=== PATIENT | female | born 1930 | race Caucasian/White ===

== ENCOUNTER 2016-11-04 10:54 | Inpatient (IN) | payer OTHER ==
--- NOTE | 2016-11-04 11:55 | PROVIDER DOCUMENTATION ---
HPI-General Adult <Deven Keith - Last Filed: 11/04/16 14:30> - General Source: patient, family - History of Present Illness -Gen Adult Nature of Presenting Problems: 86 y/o F presents with her granddaughters with multiple concerns. Family provides most of the history, as patient has dementia. Family states that over the last 2 months patient has been weak, tired, and falling at home. She has not been eating much and they estimate she has lost 30# over the last 2 months. She lives alone and does not use any assistance devices for walking. According to family she has also been complaining of body aches, sinus congestion and cough, however patient denies any of these symptoms and states she just "doesn' t feel good" and feels "tired". She denies any pain currently. She has seen her PCP, RAMEZ Guidry for this twice in the last week and has been treated for UTI and URI with 2 rounds of abx with no improvement. Family called PCP office today and was advised to come to the ER. Location of Pain/Injury: reports: none Quality of Pain: reports: none Associated Symptoms: reports: fatigue, malaise. denies: back/neck pain, chest pain, cough, fever/chills <Barbara Cobos - Last Filed: 11/04/16 15:50> - General Chief Complaint: General Adult Stated Complaint: GENERAL ADULT Time Seen by Provider: 11/04/16 11:11 Allergies/Adverse Reactions: Patient Allergies Allergy/AdvReac Type Severity Reaction Status Date / Time lisinopril Allergy Unknown Verified 11/04/16 13:41 mirtazapine Allergy Unknown Verified 11/04/16 13:41 Penicillins Allergy RASH Verified 11/04/16 13:41 Sulfa (Sulfonamide Allergy RASH Verified 11/04/16 13:41 Antibiotics) Home Medications: Home Medication List Medication Instructions Recorded Confirmed Last Taken Type Amiodarone [Cordarone] 200 mg PO DAILY 11/04/16 11/04/16 11/04/16 History Cholecalciferol (Vit D3) [Vitamin 2,000 mg PO DAILY 11/04/16 11/04/16 11/04/16 History D] Furosemide [Lasix] 20 mg PO DAILY 11/04/16 11/04/16 11/04/16 History Levothyroxine [Synthroid] 88 microgm PO DAILY 11/04/16 11/04/16 11/04/16 History Metoprolol [Lopressor] 100 mg PO DAILY 11/04/16 11/04/16 11/04/16 History PRAVAstatin [Pravachol] 20 mg PO DAILY 11/04/16 11/04/16 11/04/16 History Rivaroxaban [Xarelto] 20 mg PO DAILY 11/04/16 11/04/16 11/04/16 History Sertraline [Zoloft] 100 mg PO DAILY 11/04/16 11/04/16 11/04/16 History Ubidecarenone [Coq-10] 100 mg PO HS 11/04/16 11/04/16 11/04/16 History Review of Systems - Adult - REVIEW OF SYSTEMS - ADULT Constitutional: reports: no symptoms reported. denies: chills, fever Eyes: reports: no symptoms reported. denies: decreased vision, blurred vision, double vision Ears, Nose, Mouth & Throat: reports: no symptoms reported Cardiovascular: reports: no symptoms reported. denies: chest pain Respiratory: reports: no symptoms reported. denies: cough, shortness of breath , wheezing Gastrointestinal: reports: no symptoms reported. denies: abdominal pain, nausea , vomiting Genitourinary: reports: no symptoms reported. denies: dysuria, hematuria Musculoskeletal: reports: no symptoms reported. denies: muscle aches, muscle weakness Integumentary: reports: no symptoms reported. denies: itching, rash Neurological: reports: no symptoms reported. denies: dizziness/vertigo, headache/migraines, numbness, paresthesia Psychiatric: reports: no symptoms reported Endocrine: reports: no symptoms reported Hematologic/Lymphatic: reports: no symptoms reported Allergic/Immunologic: reports: no symptoms reported All Other Systems: Reviewed and Negative <Barbara Cobos - Last Filed: 11/04/16 15:50> Past History - Adult - PAST MEDICAL HISTORY-ADULT Review of Records: reports: Old Records Reviewed, Nursing Assessment Review, Medications Reviewed, Social history reviewed & non-contributory. <Barbara Cobos - Last Filed: 11/04/16 15:50> Physical Exam-General - PHYSICAL EXAM-ADULT Initial Vital Signs Reviewed: Yes - CONSTITUTIONAL General Appearance: appears well, alert, no apparent distress - EYES Eyes: PERRL/EOMI, pink conjunctivae - HEAD, EARS, NOSE, MOUTH & THROAT HENMT: normocephalic/atraumatic, moist mucous membranes, normal ENT inspection - NECK Neck: non-tender, full range of motion, supple - RESPIRATORY Respiratory: chest non-tender, lungs clear, normal breath sounds, no pleuratic chest pain, no respiratory distress, no accessory muscle use - CARDIOVASCULAR Cardiovascular: normal peripheral pulses, regular rate, rhythm, no edema, no gallop, no JVD, no murmur - GASTROINTESTINAL (ABDOMEN) Abdominal Exam: normal bowel sounds, non tender, soft. 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 negative: facial droop, focal weakness, motor weakness, sensory deficit - PSYCHIATRIC Psych/Mental Status: normal mood/affect, normal thought content, normal thought process, other (oriented to person and place. Not oriented to time.) <Barbara Cobos - Last Filed: 11/04/16 15:50> Progress - EKG 1 Time of EKG reading by physician:: 14:22 EKG Read and Signed by:: Rogerio Griffith EKG Interpretation (*Must complete 3 of following elements*): Abnormal Rate: 61 Rhythm: ATRIAL-PACED RHYTHM W/ PROLONGED AV CONDUCTION ST Wave: non-specific ST changes Comments: NONSPECIFIC STAND T WAVE ABNORMALITY <Deven Keith - Last Filed: 11/04/16 14:30> - XRAY 1 XRAY Study: Chest XRAY Interpretation: no acute process - CT/MRI 1 CT Study: Head CT Results: normal pressure hydrocephalus - CONSULTS/PCP/HOSPITALIST Notification #1 *Consult/PCP/Hospitalist*: Meli Mcduffie Time Discussed: 14:54 Consult Disposition: Admit <Barbara Cobos - Last Filed: 11/04/16 15:50> Departure <Deven Keith - Last Filed: 11/04/16 14:30> - Departure Time of Disposition Order: 14:52 Certified Medical Emergency: Emergent <Barbara Cobos - Last Filed: 11/04/16 15:50> - Departure DIAGNOSIS: Normal pressure hydrocephalus, MYNOR (acute kidney injury), Orthostatic hypotension, Frequent falls Disposition: ADMITTED INPATIENT 09 Condition: Stable Referrals: Amber Guidry [Primary Care Provider] - Attestation - Physician/ DANITZA Attestation Patient care was provided by Advanced Practice Provider:: Yes Advanced Practice Provider:: Barbara Cobos Advanced Practice Provider documentation review:: The Mid-level provider documentation, treatment plan and medical decision making was reviewed by the physician who agrees with all treatment and medical decision making by the MLP. The physician spent face to face time with patient:: Yes <Barbara Cobos - Last Filed: 11/04/16 15:50> Physician Attestation
[2016-11-04 12:31] LABS: MANUAL DIFF NEEDED? NO
[2016-11-04 12:34] LABS: BASO% 0.3 % (0.0-0.8); EOS% 4.5 % (0.0-10.0); HEMATOCRIT 46.3 % (37.0-47.0); HEMOGLOBIN 15.3 g/dL (12.0-16.0); IMM GRAN# 0.04 X1000 (0.0-0.04); IMM GRAN% 0.6 % (0.0-0.5); LYMPH# 1.88 X1000 (1.2-3.4); LYMPH% 28.1 % (20.5-51.1); MCH 30.5 PG (27-31); MCV 92.2 FL (81-99); MPV 10.3 FL (7.4-10.4); NEUT% 57.5 % (42.2-75.2); PLT 258 X1000 (130-400); RBC 5.02 XMIL (4.2-5.4)
[2016-11-04 12:48] LABS: ALBUMIN 3.9 g/dL (3.5-5.0); CALCIUM 9.5 mg/dL (8.8-10.2); POTASSIUM 4.5 mmol/L (3.5-5.1); TOTAL BILIRUBIN 0.71 mg/dL (0.20-1.00); TOTAL PROTEIN 7.4 g/dL (6.3-8.3)
--- NOTE | 2016-11-04 13:12 | Diag Imaging Result Document ---
PROCEDURE NAME: HEAD W/O CONTRAST - 11/04/[address]: COMPARISON: None. FINDINGS: There is moderate ventriculomegaly diffusely, out of proportion with the patient's cerebral atrophy. There is moderate periventricular white matter hypodensity, nonspecific. No intracranial mass or hemorrhage. The skull is intact. The sinuses, mastoids, and middle ears are clear. IMPRESSION: Ventriculomegaly which may represent normal pressure hydrocephalus. Moderate periventricular white matter disease.
--- NOTE | 2016-11-04 13:17 | Diag Imaging Result Document ---
PROCEDURE NAME: CHEST-2 VIEWS - 11/04/2016 FRONTAL AND LATERAL CHEST, TWO VIEWS: COMPARISON: No comparison films. FINDINGS: The lungs are well expanded. The patient has a left-sided pacemaker. The heart is not enlarged. The vessels are not distended. No pneumonia. No pleural effusions. IMPRESSION: No acute abnormality.
[2016-11-04 13:46] LABS: URINE SOURCE CLEAN CATCH
[2016-11-04 14:01] LABS: BILIRUBIN URINE NEGATIVE (NEGATIVE); CLARITY CLEAR (CLEAR); COLOR YELLOW; GLUCOSE URINE NEGATIVE (NEGATIVE); URINE EPITHELIAL CELLS <10 /HPF (<10); URINE RBC <10 /HPF (<10); URINE WBC <10 /HPF (<10)
[2016-11-04 14:02] LABS: BLOOD URINE NEGATIVE (NEGATIVE); PH URINE 5.5; PROTEIN URINE TRACE mg/dL (NEGATIVE); SP GRAVITY URINE 1.017; UROBILINOGEN URINE 0.2 EU/dL (0.2-1.0)
[2016-11-04 14:03] LABS: LEUKOCYTES URINE NEGATIVE (NEGATIVE); NITRITE URINE NEGATIVE (NEGATIVE); URINE CULTURE NEEDED? YES
[2016-11-04] MEDS ORDERED: NS 1,000 ML IV ONE (14:25)
--- NOTE | 2016-11-04 18:42 | HISTORY AND PHYSICAL ---
PRIMARY CARE PROVIDER: WENDY Estrada. At one point in time it was also Dr. Ayers. CHIEF COMPLAINT: Frequent falls. Losing weight. HISTORY OF PRESENT ILLNESS: Ms. Gonzalez is an 86-year-old, female, in no acute distress who has a past medical history of dementia, cardiac dysrhythmias requiring a pacemaker and amiodarone, TIAs and hypothyroidism. Apparently for the last 4-5 months per the patient's son she has had increased lethargy, dizziness, having falls, no energy and a 40 pound weight loss with no appetite. He states that for the last 1-1/2 months he has noticed that she has progressively gotten worse. She has to be reminded to eat. She is not keeping her house clean and is requiring a lot of help with daily duties such as cleaning herself. She lives alone. The family does live close and tries to assist her. She was recently treated with antibiotics for an upper respiratory infection and urinary tract infection. Lab work here does not reveal signs of a urinary tract infection although a urine culture has been sent. There are signs of dehydration with MYNOR. Creatinine is 2.4. She has loss of bladder with this. She also has elevated AST and ALT with some tenderness in the right upper and lower quadrant of her abdomen. So we will order an abdominal ultrasound. Give her IV fluid hydration and consult [employer]. Given the confusion and falling, orthostatic vital signs were performed and it did show some signs of hypotension during standing which could be adding to this but this is also likely secondary to dehydration and confusion. She was oriented to name and place. Head CT had been performed because she has had frequent falls and this head CT reported some possibility of normal pressure hydrocephalus, ventriculomegaly and we have consulted Neurology for further workup. PAST MEDICAL HISTORY: Dementia, cardiac dysrhythmias requiring pacemaker and amiodarone, TIA, hypothyroidism. PAST SURGICAL HISTORY: Permanent pacemaker, cholecystectomy, hysterectomy, cataracts, carpal tunnel, back and tonsillectomy. SOCIAL HISTORY: Denies tobacco, alcohol, or illicit drug use. Lives at home alone. FAMILY HISTORY: Sister is from brain cancer. Another sister has cancer. REVIEW OF SYSTEMS: A 14 point review of systems were complete and all were negative except for those mentioned in the above HPI. ALLERGIES: Lisinopril, mirtazapine, penicillin and sulfa. HOME MEDICATIONS: Amiodarone 200 p.o. daily, Lasix 20 mg p.o. daily, metoprolol 100 mg p.o. daily, pravastatin 20 mg p.o. daily, Xarelto 20 mg p.o. daily, Synthroid 88 mcg p.o. daily, CoQ10 100 mg p.o. nightly, vitamin D 2000 mg p.o. daily, Zoloft 100 mg p.o. daily. LABORATORY DATA: White blood cells 6000, hemoglobin 15, hematocrit 46, platelet count 258,000. Sodium 136, potassium 4.5, BUN 38, creatinine is 2.4, GFR is 19, glucose 119, calcium 9.5, total bilirubin 0.71. AST is 179, ALT is 229, troponin less than 0.01, albumin 3.9. Urinalysis: Negative white blood cells, negative for bacteria. IMAGING: Head CT: Ventriculomegaly which may represent normal pressure hydrocephalus, moderate periventricular white matter disease. Chest x-ray: No acute findings. PHYSICAL EXAMINATION: VITAL SIGNS: Temp temperature 98.2 degrees, heart rate 64, respiratory rate 18, blood pressure 144/64, O2 saturation 100% on room air. ORTHOSTATIC VITALS: Heart rate remained in the 60s but blood pressure went from supine 122/57, sitting 109/88, standing 88/48. GENERAL: Ms. Gonzalez is an 86-year-old, female. She is in no acute distress. She is able to answer some questions appropriately but not all. There is some confusion involved. HEENT: Atraumatic, normocephalic. Pupils equal, round, reactive to light. Mucous membranes are dry. NECK: No JVD or carotid bruits noted. CARDIOVASCULAR: S1, S2. Regular rate and rhythm. No rubs, gallops, or murmurs. PULMONARY: Clear to auscultation. Bilateral breath sounds. No accessory muscle use or work of breathing noted. GASTROINTESTINAL: Soft, nondistended, positive bowel sounds x4 although she does have some tenderness in the right upper and lower quadrant. EXTREMITIES: Trace lower extremity edema. She has +2 dorsalis and radial pulses. NEUROLOGIC: She is oriented to name and place only. She did follow commands and moved all extremities equally. Strength was equal about of 4/5 in all extremities. ASSESSMENT AND PLAN: 1. Possible normal pressure hydrocephalus was found on head CT. Neurology has been consulted. 2. Dementia. Possible progressive. Given that she has not been eating and not as vigilant in keeping herself clean or the house clean, very poor appetite but no nausea or vomiting, Fuel Agent has been consulted for possible placement once discharged. Again will follow up with recommendations from Neurology. 3. Acute kidney injury likely secondary to dehydration and poor p.o. intake. We will do IV fluid hydration. Send off urine studies. She has been receiving Lasix at home. This could also be prerenal secondary to hypotensive episodes on standing. She also has been receiving 100 mg of metoprolol which could be adding to the hypotension. We will do orthostatic vitals every 12 hours and continue with IV fluid hydration. 4. Elevated liver enzymes. Amiodarone will be held and so will her statin. The statin could also add to decreased muscle strength. 5. Hypertension. Currently not hypertensive. 6. Hypothyroidism. Continue Synthroid. We will check TSH in morning. 7. Deep venous thrombosis prophylaxis. SCDs. 8. GI prophylaxis. Proton pump inhibitor. Dictated by WENDY Patino for Trey Salazar MD
[2016-11-04] MEDS ORDERED: TYLENOL PO PRN (19:02)
[2016-11-04] MEDS ORDERED: ZOFRAN IV PRN (19:02)
[2016-11-04] MEDS: NS 1,000 ML IV SCH (20:57)
[2016-11-04] MEDS: COENZYME Q10 PO SCH (20:57)
[2016-11-05] MEDS: NS 1,000 ML IV SCH ×2 (04:11→18:24)
[2016-11-05] MEDS: PRILOSEC PO SCH (06:01)
[2016-11-05 06:10] LABS: MANUAL DIFF NEEDED? NO
[2016-11-05 06:30] LABS: INR 1.14; PROTIME 12.1 Seconds (9.2-11.7); PTT 26.3 Seconds (22.0-36.0)
[2016-11-05 06:33] LABS: BASO% 0.2 % (0.0-0.8); EOS# 0.31 X1000 (0.0-0.7); EOS% 7.2 % (0.0-10.0); HEMATOCRIT 40.9 % (37.0-47.0); HEMOGLOBIN 13.6 g/dL (12.0-16.0); IMM GRAN# 0.02 X1000 (0.0-0.04); IMM GRAN% 0.5 % (0.0-0.5); LYMPH# 1.42 X1000 (1.2-3.4); LYMPH% 32.9 % (20.5-51.1); MCH 30.6 PG (27-31); MCHC 33.3 g/dL (33-37); MCV 92.1 FL (81-99); MONO# 0.48 X1000 (0.11-0.59); MONO% 11.1 % (1.7-9.3); MPV 9.9 FL (7.4-10.4); NEUT% 48.1 % (42.2-75.2); PLT 162 X1000 (130-400); RBC 4.44 XMIL (4.2-5.4)
[2016-11-05 06:35] LABS: ALBUMIN 3.2 g/dL (3.5-5.0); CALCIUM 8.4 mg/dL (8.8-10.2); MAGNESIUM 1.8 mg/dL (1.5-2.7); POTASSIUM 4.9 mmol/L (3.5-5.1); TOTAL BILIRUBIN 0.71 mg/dL (0.20-1.00); TOTAL PROTEIN 6.1 g/dL (6.3-8.3)
[2016-11-05 06:56] LABS: HEMOGLOBIN A1C 5.2 % (4.8-6.0)
[2016-11-05] MEDS: VITAMIN D PO SCH (09:45)
[2016-11-05] MEDS: XARELTO PO SCH (09:46)
[2016-11-05] MEDS: ZOLOFT PO SCH (09:46)
[2016-11-05] MEDS: SYNTHROID PO SCH (09:46)
--- NOTE | 2016-11-05 11:23 | Diag Imaging Result Document ---
PROCEDURE NAME: US ABDOMEN-COMPLETE - 11/05/2016 ULTRASOUND ABDOMEN COMPLETE: COMPARISON: None. FINDINGS: There are a couple of right renal cysts measuring up to 3 cm. No hydronephrosis. The left kidney is normal. Gallbladder is surgically absent. The liver, pancreas, and spleen are normal. Spleen size is 8.9 x 8.6 x 4.3 cm. The common bile duct measures 5 mm. Aorta, IVC, and main portal vein are patent. IMPRESSION: Right renal cysts. No acute disease.
--- NOTE | 2016-11-05 15:10 | CONSULTATION ---
DATE OF CONSULTATION: 11/05/2016 NEUROLOGY CONSULT NOTE: Ms. Gonzalez is 86 years old and she has had some decline neurologically. History is taken from attentive family at the bedside including son and daughter. I have also reviewed the history recorded in the hospital chart. Family reports she had some forgetfulness more than a year ago. She had diagnosis of dementia and a trial with donepezil and memantine started together approximately a year ago. She stopped those medicines after about a week because of nightmares. Later, she had a short trial with rivastigmine patch and stopped that after a week or so because of nightmares. She has not had a trial with memantine alone. Her memory has been gradually getting worse. She has had unsteady gait in the last several months. She has had a few falls in the last month. Daughter witnessed one fall when she seemed to simply trip over her feet. Falls are not associated with altered consciousness, altered awareness, focal neurologic deficit. She has a little bit of urge incontinence but not major incontinence. There is history of head injury when she fell down some steps a few years ago. She also had head injury in one of her recent falls within the last month or so. Head injuries have not definitely been associated with loss of consciousness or altered awareness. Family reports history of "stroke" diagnosed 30 years or so ago when she had transient speech difficulty resolving in small number of days. Otherwise, she has not had diagnosed stroke, seizure, other neurologic event. She does not use ethanol. She has not had any recent medication change. According to family, she has lost appetite. She has had very little p.o. intake. She has lost about 20 pounds in the last month. She presents today with labs showing elevated liver enzymes, BUN initially 38 and then 31, creatinine initially 2.4 [address] then [address]. Noncontrast CT of the head showed large ventricles and diffuse atrophy. Past history is remarkable for cardiac pacemaker placement, hypothyroidism, hypertension, dyslipidemia. Review of vital signs shows she has been afebrile this admission. Heart rate has ranged from 60s to 80. Systolic blood pressures have ranged from 140s initially to 190s after hydration. On exam, Ms. Gonzalez is awake, alert, attentive, cheerful, appropriate. She was not able to tell me the name of the hospital, the day of the week, the name of the month, the name of the President. Speech is not dysarthric. Language function is intact on bedside testing. Remote memory is fair. Head and neck are unremarkable. There is no meningismus. She has full visual pulido tested grossly by confrontational finger counting. Extraocular movements are full. Facial motility is a little bit diminished bilaterally, but symmetric. Gag is intact. Tongue is midline. She can hear. Shoulder shrug is good bilaterally. She has good power in the arms and legs. She did well on [id number] testing. While seated at the bedside, she did well on heel- to-marsh testing. She has good peripheral sensation to gross pinprick and light touch testing. Gait is apractic. Reflexes are 1+ at the knees and absent at the ankles. Plantar response is silent bilaterally. IMPRESSION: 1. Baseline cognitive impairment, probably major cognitive impairment/dementia. She did not tolerate cholinesterase inhibitors. She has not had memantine alone. We might consider trial with memantine electively, not urgent. We might also very carefully consider trying cholinesterase inhibitor with lower starting dose. 2. Apractic gait. 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 This has been worse in recent months. Family gives clear history that cognitive impairment significantly preceded gait difficulty. 3. CT findings as noted. Unfortunately, MRI is not an option because of her pacemaker placement. She does not have significant urinary incontinence. Cognitive impairment preceded gait difficulty. These features make "normal pressure hydrocephalus" less likely. We discussed this diagnosis at some length. I do not think we need urgent workup. If we can get her current liver and renal problems stabilized, get her hydrated, get some physical therapy and see how she does, we might then consider large volume cerebral spinal fluid drainage with LP or a continued CSF drainage procedure. These are not urgent. Thanks for asking me to see Ms. Gonzalez. [facility]
--- NOTE | 2016-11-05 17:29 | PROGRESS NOTE ---
DATE: 11/05/2016 SUBJECTIVE: The patient is doing fine, definitely more alert and awake. Denies any headache or nausea, vomiting. OBJECTIVE: Vital Signs: Temperature 98.0 degrees, heart rate 58, respiratory rate 14, blood pressure 127/50, O2 saturation 96% on room air. General Examination: This is a 86-year-old female lying in bed, in no acute distress. HEENT: Head is normocephalic, atraumatic. Anicteric sclerae and pale conjunctivae. Mucous membranes moist. Neck: Supple. No JVD noted. No carotid bruits. No lymphadenopathy. No thyromegaly. Cardiovascular: S1, S2 heard. No murmurs, gallops, or rubs. Regular rate and rhythm. Respiratory: Clear bilaterally to auscultation. No work of breathing or using accessory muscles. Abdomen: Soft, nontender to palpation. Bowel sounds present. No organomegaly. Extremities: No clubbing, cyanosis, or edema. Peripheral pulses present in both legs. Neurological: Patient is alert and oriented x3. Cranial nerves 2-12 grossly normal. LABORATORY DATA: CBC is unremarkable, and BMP shows creatinine 1.6, and BUN 31, with AST 138, ALT 165. ASSESSMENT: 1. Hydrocephalus. 2. Dementia. 3. Acute kidney injury. 4. Transaminitis. 5. Hypertension. 6. Hypothyroidism. PLAN: Patient was admitted to the hospital for altered mental status, dementia, and urinary incontinence. CT of the head shows some hydrocephalus so at this time, we have consulted Dr. Gaitan, who thinks that this probably is not the classic normal pressure hydrocephalus considering that the dementia has appeared first before gait disturbances. At this time, we are going to continue with conservative treatment. For acute kidney injury, the renal function is getting better with IV fluids. We will continue definitely with the same management and check BMP tomorrow. For transaminitis we are going to consult GI. We have already ordered a hepatitis profile. For high blood pressure we are going to continue with home medications. For hypothyroidism we will continue with oral Synthroid.
[2016-11-05] MEDS ORDERED: HALDOL IM ONE (20:15)
--- NOTE | 2016-11-05 20:40 | CONSULTATION ---
DATE OF CONSULTATION: 11/05/2016 REFERRING PHYSICIAN: Trey Salazar MD INDICATIONS FOR CONSULTATION: 1. Elevated liver function tests. 2. Ongoing weight loss. HISTORY OF PRESENT ILLNESS: The patient is a very pleasant 86-year-old white female who was brought to the emergency room by family for the evaluation of lethargy, dizziness, frequent falls at home, loss of energy, and a 40 pound weight loss associated with anorexia. The family states that for the last 1-1/2 months, she has had a progressive decline in her overall status. She has to be reminded to eat and frequently only eats a small amount and claims that she is full. She has a history of constipation alternating with diarrhea. Her daughter states that she had a colonoscopy greater than 20 years ago that was reportedly normal except for diverticulitis. She states that the diverticulitis found on colonoscopy was treated with antibiotics, and her mother has had no further challenges from the diverticulitis. Her last colonoscopy was in her 70s. She denies a family history of colon cancer. She does note that the patient's sister from Clostridium difficile colitis. She has 1 sister who from lung cancer with brain metastasis, and their father from a myocardial infarction. She has one sister who is alive who has similar multiple GI concerns. On serum chemistry after admission, she was found to have elevated liver function tests. Her head CT is remarkable for ventriculomegaly, which may represent normal pressure hydrocephalus with moderate periventricular white matter disease. We are asked to participate in her care. PAST MEDICAL HISTORY: 1. Cardiac arrhythmias requiring pacemaker and amiodarone. 2. TIAs. 3. Dementia. 4. Hypothyroidism. 5. Diverticulitis. PAST SURGICAL HISTORY: 1. Cholecystectomy. 2. Tonsillectomy. 3. Back surgery. 4. Carpal tunnel repair. 5. Permanent pacemaker placement. 6. Cataracts. SOCIAL HISTORY: Negative for alcohol, tobacco, or recreational drug use. The patient lives alone at this time. REVIEW OF SYSTEMS: Remarkable in that the patient feels slightly better today after she has received IV fluids. She continues to have weakness and mild nausea. She reports a loss of appetite. She is in no acute distress, denying severe abdominal pain, fever, chills, headache, or other symptoms. ALLERGIES: Her medication allergies are: 1. Lisinopril. 2. Mirtazapine. 3. Penicillin. 4. Sulfa. HOME MEDICATIONS: 1. Amiodarone. 2. Lasix. 3. Metoprolol. 4. Pravastatin. 5. Xarelto. 6. Synthroid. 7. CoQ10. 8. Vitamin D. 9. Zoloft. PHYSICAL EXAMINATION: Vital Signs: On exam, her blood pressure is 127/58, pulse is 60, respirations 14, temperature of 98.1 degrees. General: In general, she is in no acute distress. HEENT: Her sclerae are anicteric. Her conjunctivae are slightly pale. Her oropharyngeal and mucosal membranes are normal. Pulmonary: On pulmonary exam, her lungs are clear to auscultation with normal expiratory effort. Cardiovascular: Exam reveals a regular rate and rhythm with no murmurs, gallops, or rubs. Abdomen: Exam reveals normoactive bowel sounds. The abdomen is soft, nontender, with no rebound or guarding. Extremities: Bilaterally are negative for cyanosis, clubbing, or edema. OBJECTIVE DATA: Remarkable for hemoglobin of 13.6 with hematocrit of 40.9, and a white count of 4.31; she has 162,000 platelets. Her PT is 12.1 with an INR of 1.14 and a PTT of 26.3. Sodium is 139, potassium 4.9, chloride 103, CO2 of 26, BUN 31, creatinine 1.6, and glucose of 87. Calcium is 8.4, magnesium 1.8, total bilirubin 0.7, AST 138, ALT is 165, alkaline phosphatase is 69, total protein 6.1, and albumin 3.2. IMPRESSION: 1. Elevated liver function tests. 2. Ongoing weight loss. 3. Change in bowel habits. 4. New normal pressure hydrocephalus. RECOMMENDATIONS: 1. The cause of her elevated liver function tests is unclear. The differential includes viral hepatitis, autoimmune liver disease, and her medications. Her liver function tests are improving over the last 24 hours without any intervention. Therefore, I recommend watchful waiting. 2. I would check markers for autoimmune liver disease such as an DICKSON and antismooth muscle antibody. 3. I would follow her CRP as a marker of inflammation, coagulation studies, and her CBC. 4. Her abdominal ultrasound was reviewed and is unremarkable. At this time, I would continue conservative care. 5. I agree with Protonix for GI prophylaxis. 6. I would continue regular diet as you are doing. 7. Additional recommendations to follow based on her clinical course.
[2016-11-05] MEDS: COENZYME Q10 PO SCH (20:48)
[2016-11-05] MEDS ORDERED: HALDOL IM PRN (22:30)
[2016-11-06] MEDS: NS 1,000 ML IV SCH ×2 (04:31→14:51)
[2016-11-06 06:40] LABS: MANUAL DIFF NEEDED? NO
[2016-11-06] MEDS: PRILOSEC PO SCH (06:46)
[2016-11-06 06:53] LABS: BASO% 0.3 % (0.0-0.8); EOS# 0.25 X1000 (0.0-0.7); EOS% 7.4 % (0.0-10.0); HEMATOCRIT 41.6 % (37.0-47.0); HEMOGLOBIN 13.8 g/dL (12.0-16.0); LYMPH# 0.87 X1000 (1.2-3.4); LYMPH% 25.8 % (20.5-51.1); MCH 30.5 PG (27-31); MCHC 33.2 g/dL (33-37); MONO# 0.32 X1000 (0.11-0.59); MONO% 9.5 % (1.7-9.3); PLT 168 X1000 (130-400); RBC 4.52 XMIL (4.2-5.4)
[2016-11-06 06:59] LABS: INR 1.23; PROTIME 13.1 Seconds (9.2-11.7)
[2016-11-06 07:26] LABS: ALBUMIN 2.7 g/dL (3.5-5.0); CALCIUM 8.4 mg/dL (8.8-10.2); PREALBUMIN 26.9 mg/dL (20-40); TOTAL BILIRUBIN 0.64 mg/dL (0.20-1.00); TOTAL PROTEIN 5.8 g/dL (6.3-8.3)
[2016-11-06] MEDS: ZOLOFT PO SCH (10:00)
[2016-11-06] MEDS: XARELTO PO SCH (10:00)
[2016-11-06] MEDS: SYNTHROID PO SCH (10:00)
[2016-11-06] MEDS: VITAMIN D PO SCH (10:00)
--- NOTE | 2016-11-06 13:43 | PROGRESS NOTE ---
DATE: 11/06/2016 SUBJECTIVE: Patient is feeling fine. Denies any headache, any fever, chills, nausea or vomiting. OBJECTIVE: Vital Signs: Temperature 98.6 degrees, heart rate 62, respiratory rate 19, blood pressure 183/64, and O2 saturation 97% on room air. General examination: This is a 89-year-old, female, lying in bed in no acute distress. HEENT: Head is normocephalic, atraumatic. Anicteric sclerae and pale conjunctivae. Mucous membranes moist. Neck: Supple. No JVD noted. No carotid bruits. No lymphadenopathy. No thyromegaly. Cardiovascular exam: S1, S2 heard. No murmurs, gallops, or rubs. Regular rate and rhythm. Respiratory exam: Clear bilaterally to auscultation. No work of breathing or using accessory muscles. Abdomen: Soft, nontender to palpation. Bowel sounds present. No organomegaly. Extremities: No clubbing, cyanosis, or edema. Peripheral pulses present in both legs. Neurological exam: Patient alert and oriented x3. Able to move 4 extremities. Cranial nerves 2-12 grossly normal. LABORATORY DATA: White cell count 3.37, hemoglobin 13.8, hematocrit 41.6, platelets 168. BMP is unremarkable. ASSESSMENT: 1. Hydrocephalus noted on computed tomography. 2. Dementia. 3. Acute kidney injury. 4. Transaminitis. 5. Hypertension. 6. Hypothyroidism. PLAN: The patient was admitted to the hospital for altered mental status, dementia, and labs shows acute kidney injury. The altered mental status completely resolved and patient is back to her baseline. For acute kidney injury, patient has been given IV fluids, and creatinine is almost back to normal at 1.1 today. We will continue with the same management. For hydrocephalus, neurology has evaluated this patient and he mentioned that he may plan to do any procedures after this patient had transaminitis and acute kidney injury resolved. Regarding transaminitis, this patient has been evaluated by Dr. Pryor, and she recommends watching this patient only because these enzymes are coming back to normal without any intervention. We will follow her recommendations. Further recommendations to follow according to the clinical situation of the patient.
[2016-11-06] MEDS ORDERED: MIRALAX PO ONE (14:23)
[2016-11-06] MEDS: COENZYME Q10 PO SCH (20:11)
[2016-11-06] MEDS ORDERED: DULCOLAX PR ONE (21:40)
--- NOTE | 2016-11-06 22:15 | PROGRESS NOTE ---
DATE: 11/06/2016 SUBJECTIVE: The patient was evaluated this afternoon on rounds. She states that she feels pretty good. She complains of constipation. She had some mild diffuse abdominal pain when she was straining to defecate. She is specifically requesting a Dulcolax suppository. She denies other symptoms and has tolerated regular diet without difficulty. OBJECTIVE: On exam she is in no acute distress. Her blood pressure is 183/64, pulse is 62, respiration 19, temperature of 98.6 degrees. Her abdominal exam reveals normoactive bowel sounds. The abdomen is soft with mild diffuse tenderness but no rebound or guarding. OBJECTIVE DATA: Include a hemoglobin of 13.8 with hematocrit of 41.6 and white count of 3.37. She has 168,000 platelets. Her PT is 13.1 with an INR 1.23. Sodium is 143, potassium 4.0, chloride 109, CO2 of 25, BUN 17, creatinine 1.1 with a glucose of 90. Calcium is 8.4, total bilirubin 0.64, AST 108, ALT 134, alkaline phosphatase 62, total protein 5.8 and albumin 2.7. RECOMMENDATION: 1. Her liver function tests continue to improve. Therefore, I would continue careful monitoring with daily labs. 2. She reports constipation. Therefore, I will prescribed a Dulcolax suppository now and as needed for constipation. 3. The patient has prescribed a regular diet but states that she is mostly drinking Ensure, I have encouraged her to advance her diet as tolerated. 4. We await the results of her outstanding labs. 5. Additional recommendations to follow based on her clinical course.
[2016-11-07] MEDS: NS 1,000 ML IV SCH ×4 (02:11→23:33)
[2016-11-07] MEDS: PRILOSEC PO SCH (06:03)
[2016-11-07] MEDS: ANUSOL-HC CREAM PR SCH ×3 (06:04→20:26)
[2016-11-07 06:34] LABS: MANUAL DIFF NEEDED? NO
[2016-11-07 06:38] LABS: BASO% 0.2 % (0.0-0.8); EOS# 0.18 X1000 (0.0-0.7); EOS% 3.5 % (0.0-10.0); HEMATOCRIT 37.7 % (37.0-47.0); HEMOGLOBIN 12.4 g/dL (12.0-16.0); IMM GRAN# 0.02 X1000 (0.0-0.04); IMM GRAN% 0.4 % (0.0-0.5); LYMPH% 23.2 % (20.5-51.1); MCH 30.2 PG (27-31); MCHC 32.9 g/dL (33-37); MONO% 7.7 % (1.7-9.3); MPV 10.1 FL (7.4-10.4); PLT 158 X1000 (130-400)
[2016-11-07 06:55] LABS: ALBUMIN 2.9 g/dL (3.5-5.0); CALCIUM 8.5 mg/dL (8.8-10.2); POTASSIUM 4.1 mmol/L (3.5-5.1); TOTAL BILIRUBIN 0.63 mg/dL (0.20-1.00); TOTAL PROTEIN 5.4 g/dL (6.3-8.3)
[2016-11-07] MEDS: VITAMIN D PO SCH (10:07)
[2016-11-07] MEDS: ZOLOFT PO SCH (10:08)
[2016-11-07] MEDS: SYNTHROID PO SCH (10:08)
[2016-11-07] MEDS: XARELTO PO SCH (10:08)
[2016-11-07] MEDS ORDERED: AMITIZA PO ONE (11:13)
--- NOTE | 2016-11-07 12:55 | PROGRESS NOTE ---
DATE: 11/07/2016 SUBJECTIVE: Patient is feeling fine. Denies any complaint. Patient is able to walk around. No nausea, vomiting, fever, chills. OBJECTIVE: Vital Signs: Temperature 98.5 degrees, heart rate 64, respiratory rate 18, blood pressure 151/59, O2 saturation 100% on room air. General Examination: This is an 86-year-old female lying in bed, in no acute distress. HEENT: Head is normocephalic, atraumatic. Anicteric sclerae. Pale conjunctivae. Mucous membranes moist. Neck: Supple. No JVD noted. No carotid bruits. No lymphadenopathy. No thyromegaly. Cardiovascular: S1, S2 heard. No murmurs, gallops, or rubs. Regular rate and rhythm. Respiratory: Clear bilaterally to auscultation. No work of breathing or using accessory muscles. Abdomen: Soft. Nontender to palpation. Bowel sounds present. No organomegaly. Extremities: No clubbing, cyanosis, or edema. Peripheral pulses present in both legs. Neurological: Patient is alert and oriented x3. Able to move 4 extremities. Cranial nerves 2 through 12 grossly normal. LABORATORY DATA: CBC and BMP are completely. ASSESSMENT: 1. Hydrocephalus noted on CT of head. 2. Dementia. 3. Acute kidney injury. 4. Transaminitis. 5. Hypertension. 6. Hypothyroidism. PLAN: Patient admitted to the hospital for altered mental status, dementia. Also CT of the head shows ventriculomegaly. Dr. Gaitan has been consulted. He does not think that this is a normal pressure hydrocephalus. In any case, he preferred to wait for MYNOR and also for transaminitis to resolve in order to make further plans. At this time acute kidney injury is completely resolved and AST and ALT are getting much better without any intervention. Tomorrow we are going to check with him to see if he is planning to do any procedure like lumbar puncture or just checking on her in the office. The patient clinically is doing fine. Altered mental status has completely resolved. She is able to walk around and is eating okay as well. Also from a GI standpoint, Dr. Pryor is following this patient and reports that she is planning to just watch her considering that the transaminases are getting better. For dementia, she is definitely better too. As we mentioned before. We will check with neurology for further plans.
--- NOTE | 2016-11-07 18:06 | CONSULTATION ---
DATE OF CONSULTATION: 11/07/2016 CHIEF COMPLAINT: Swollen hemorrhoids. HISTORY: This is an 86-year-old lady admitted on the with weight loss. She has a history of dementia, cardiac dysrhythmia, TIA, hypothyroidism. She apparently has been falling and so she is admitted for further evaluation. PAST SURGICAL HISTORY: Cholecystectomy, hysterectomy, cataracts, carpal tunnel, back surgery, tonsillectomy, pacemaker surgery. MEDICATIONS: Listed. SOCIAL HISTORY: She does not smoke or drink alcohol. She lives at home alone. FAMILY HISTORY: Pertinent for cancer. REVIEW OF SYSTEMS: Pertinent for constipation and she does have known hemorrhoids. ALLERGIES: Lisinopril, mirtazapine, penicillin, Sulfa. PHYSICAL EXAMINATION: Vital Signs: She is afebrile. Heart rate 59, respiratory rate 18, blood pressure 127/50. Lungs: Bilateral breath sounds. Heart: Regular rate and rhythm. Abdomen: Soft. RECTAL: Her anus shows swollen external hemorrhoids. Anal caliber is normal. No hard masses palpated. No blood is noted on the gloved finger. Extremities: She has trace peripheral edema. Neurologic: She is awake and alert. ASSESSMENT: Swollen external hemorrhoids. I would recommend conservative therapy using Anusol with hydrocortisone cream and I think with time, the swelling will go down. Her anal caliber is fine. This does not represent a malignancy. Thanks for the opportunity to see her.
[2016-11-07] MEDS: COENZYME Q10 PO SCH (20:26)
[2016-11-07] MEDS ORDERED: ANUSOL-HC CREAM PR SCH (21:00)
[2016-11-07] MEDS ORDERED: DULCOLAX PR PRN (21:40)
[2016-11-08] MEDS: PRILOSEC PO SCH (06:41)
[2016-11-08 07:11] LABS: MANUAL DIFF NEEDED? NO
[2016-11-08 07:18] LABS: BASO% 0.5 % (0.0-0.8); EOS# 0.23 X1000 (0.0-0.7); EOS% 5.3 % (0.0-10.0); HEMATOCRIT 36.6 % (37.0-47.0); IMM GRAN# 0.03 X1000 (0.0-0.04); IMM GRAN% 0.7 % (0.0-0.5); LYMPH# 1.26 X1000 (1.2-3.4); MCH 30.2 PG (27-31); MCHC 32.8 g/dL (33-37); MCV 92.2 FL (81-99); MONO# 0.47 X1000 (0.11-0.59); MONO% 10.8 % (1.7-9.3); MPV 10.2 FL (7.4-10.4); NEUT% 53.7 % (42.2-75.2); PLT 160 X1000 (130-400); RBC 3.97 XMIL (4.2-5.4)
[2016-11-08 07:42] LABS: AGAP 11; ALBUMIN 2.6 g/dL (3.5-5.0); ALKALINE PHOSPHATASE 55 U/L (32-104); BUN 10 mg/dL (8-22); CALCIUM 7.9 mg/dL (8.8-10.2); CHLORIDE 107 mmol/L (98-107); COSMO 283; GOT 50 U/L (10-30); GPT 74 U/L (10-36); POTASSIUM 3.7 mmol/L (3.5-5.1); SODIUM 143 mmol/L (136-145); TCO2 25 mmol/L (25-35); TOTAL BILIRUBIN 0.63 mg/dL (0.20-1.00); TOTAL PROTEIN 5.3 g/dL (6.3-8.3)
[2016-11-08] MEDS: VITAMIN D PO SCH (09:35)
[2016-11-08] MEDS: ANUSOL-HC CREAM PR SCH (09:35)
[2016-11-08] MEDS: SYNTHROID PO SCH (09:35)
[2016-11-08] MEDS: XARELTO PO SCH (09:35)
[2016-11-08] MEDS: ZOLOFT PO SCH (09:35)
[2016-11-08 10:40] VITALS: BP 124/46
[2016-11-08] MEDS: NS 1,000 ML IV SCH (11:01)
[2016-11-08 15:25] LABS: HEPATITIS PROFILE ACUTE SEE COMMENTS (())
--- NOTE | 2016-11-08 17:15 | PROGRESS NOTE ---
DATE: 11/08/2016 Ms. Gonzalez is awake, alert, attentive and appropriate. Speech is not dysarthric. I did not examine her gait. She has not had any more episodes. As discussed with patient and family at the bedside and with Dr. Mcduffie, my suggestion is to optimize other management before considering specific workup for CSF pressure. I would continue correcting her liver and kidney function, continue medicines, consider donepezil trial, consider physical therapy/rehab. We discussed potential workup for CSF pressure. I will be glad to see her as an outpatient whenever needed. Thanks for asking me to see Ms. Gonzalez.
--- NOTE | 2016-11-09 15:43 | DISCHARGE SUMMARY ---
ADMISSION DATE: 11/04/2016 DISCHARGE DATE: 11/08/2016 CONSULTATIONS: 1. Dr. Pedro Pablo Gaitan with Neurology. 2. Dr. Shanda Pryor with GI. 3. Dr. Cb Navarro with General Surgery. PERTINENT PROCEDURES: Head CT showed ventriculomegaly which may represent normal pressure hydrocephalus, moderate periventricular white matter disease. Abdomen ultrasound showed a right renal cyst, no acute disease. DISCHARGE DIAGNOSES: 1. External hemorrhoids. Continue with Anusol externally. 2. Hydrocephalus noted on CT of the head, showed ventriculomegaly. However per Dr. Gaitan he does not think that this is a normal pressure hydrocephalus and preferred to await acute kidney injury and transaminitis to resolve to make any further plans. Stable. 3. Dementia. Stable. 4. Acute kidney injury. Resolved. 5. Transaminitis. Improving. 6. Hypertension. Stable. 7. Hypothyroidism. Continue on Synthroid. 8. Possibly progressive dementia. However patient appears back at baseline. HOSPITAL COURSE: Briefly, Ms. Gonzalez is an 86-year-old, female, who has a past medical history of dementia, cardiac dysrhythmias, requiring a pacemaker and amiodarone, TIAs and hypothyroidism. Apparently over the last 4-5 months per the son the patient has had an increase in lethargy, dizziness, having falls, no energy, 40 pound weight loss with no appetite. He states that over the past month and a half he noticed that she is progressively getting worse. She has to be reminded to eat. She is not keeping her house clean, is requiring a lot of help with daily duties such as cleaning herself. The patient does live alone. Family does live close and they do try to assist her. She was recently treated with antibiotics for her upper respiratory infection and UTI. Lab work did not reveal any signs of UTI but there were signs of dehydration with acute kidney injury. Her creatinine was 2.4. She did have loss of bladder. She also had an elevated AST and ALT with some tenderness in the right upper and lower quadrant of her abdomen. Abdominal ultrasound was ordered and only showed a renal cyst. Did suspect that the liver, pancreas and spleen were normal. She did have a head CT that showed some possibility of normal pressure hydrocephalus, ventriculomegaly. Neurology was consulted for this. She was also started on IV fluids due to her dehydration and acute kidney injury. Her amiodarone was held as well as her statin due to her elevated liver enzyme. Dr. Gaitan did not feel that this was a normal hydrocephalus. And due to her cognitive impairment, preceded gait difficulty, these features make "normal pressure hydrocephalus" less likely. He did not feel there was a need for an urgent workup and unfortunately due to her pacemaker placement MRI is not an option. And after she has had physical therapy along with hydration and issue of her acute candidate kidney injuries along with liver function studies he might consider a large volume cerebral spinal fluid drainage with LP, but it was not urgent. Dr. Shanda Pryor was consulted secondary to elevated liver functions. Her liver functions did continue to improve. Dr. Cb Navarro was also consulted for external hemorrhoids. He found that they were swollen. He recommended conservative therapy using Anusol with hydrocortisone cream. Her anal caliber was fine. He did not feel that this was any type of malignancy. The patient's acute kidney injury has completely resolved. Her AST and ALT have has improved without intervention. Her altered mental status has completely resolved. She has been walking around and eating okay as well. The patient is being discharged today. The patient is being discharged home with home health. DISCHARGE MEDICATION: 1. Xarelto 20 mg p.o. daily. 2. Synthroid 88 mcg p.o. daily. 3. CoQ10 100 mg p.o. at bedtime. 4. Vitamin D 2000 units p.o. daily. 5. Zoloft 100 mg p.o. daily. 6. Anusol 2.5% p.r. b.i.d. apply externally to hemorrhoids as needed. FOLLOWUP: Patient is being discharged home with home health. She is to follow up with her nurse practitioner, Amber Guidry. She will need to follow up this week because of her elevated liver enzymes as well as an acute kidney injury and medication changes. Patient has been taken off her amiodarone, her statin, her Lasix, and her Lopressor secondary to the elevated liver enzymes and acute kidney injury secondary to dehydration. The patient can return to the ED for any worsening of symptoms. DISCHARGE TIME: Greater than 30 minutes. Dictated by WENDY Conti for Trey Salazar MD
--- NOTE | 2016-11-17 08:29 | DISCHARGE SUMMARY ---
ADMISSION DATE: 11/04/2016 DISCHARGE DATE: 11/08/2016 DISCHARGE SUMMARY ADDENDUM: ANSWER: Metabolic encephalopathy secondary to MYNOR/dehydration.
== END 2016-11-08 16:53 | disposition home health service (06) | DRG 682 ==
LOC: ED 10:54 → 3N 18:30
PROVIDERS: ATTEND Internal Medicine
DX: N17.9 Acute kidney failure, unspecified (principal); G93.41 Metabolic encephalopathy; G91.9 Hydrocephalus, unspecified; F03.90 Unspecified dementia, unspecified severity, without behavioral disturbance, psychotic disturbance, mood disturbance, and anxiety; E86.0 Dehydration; I10 Essential (primary) hypertension; E03.9 Hypothyroidism, unspecified; R63.4 Abnormal weight loss; R74.0 Nonspecific elevation of levels of transaminase and lactic acid dehydrogenase [LDH]; N39.41 Urge incontinence; E78.5 Hyperlipidemia, unspecified; K59.00 Constipation, unspecified; K64.4 Residual hemorrhoidal skin tags; Z68.31 Body mass index [BMI] 31.0-31.9, adult; Z95.0 Presence of cardiac pacemaker; Z79.899 Other long term (current) drug therapy; Z86.73 Personal history of transient ischemic attack (TIA), and cerebral infarction without residual deficits; Z91.81 History of falling; Z80.9 Family history of malignant neoplasm, unspecified; Z79.01 Long term (current) use of anticoagulants; Z80.1 Family history of malignant neoplasm of trachea, bronchus and lung; Z82.49 Family history of ischemic heart disease and other diseases of the circulatory system
CPT/HCPCS: 36415; 70450; 71020; 76700; 80053; 80074; 81001; 82570; 83036; 83735; 84134; 84300; 84443; 84484; 85025; 85610; 85730; 86038; 86140; 86255; 87088; 87804; J2405; J7030